=== PATIENT | male | born 1995 | race Caucasian/White ===

== ENCOUNTER 2019-07-03 20:56 | Inpatient (IN) ==
[2019-07-03 21:27] LABS: Bilirubin,Urine Small (Negative); Blood,Urine Negative (Negative); Clarity,Urine Cloudy (Clear); Color,Urine Dark Yellow (Yellow); Glucose,Urine (UA) Normal (Normal); Ketones,Urine Trace mg/dL (Negative); Leukocyte Esterase,Urine Small (Negative); Nitrite,Urine Negative (Negative); Protein,Urine Trace mg/dL (Neg-Trace); Specific Gravity,Urine > 1.030 (1.010-1.025); Urobilinogen,Urine Normal (Normal)
[2019-07-03 21:28] LABS: Bacteria,Urine Few per hpf (None-Few); Hyaline Casts,Urine Moderate per lpf (None-Few); RBC,Urine 0-3 per hpf (0-3); Squamous Epithelial Cell,Urine Many per lpf (None-Few); WBC,Urine 15-30 per hpf (0-3)
[2019-07-03 21:31] LABS: Basophils % 0.3 %; Eosinophils % 0.3 %; Immature Granulocytes % 0.3 % (0-4); Lymphocytes # 2.9 K/mcL (0.6-4.6); Lymphocytes % 25.4 %; Mean Corpuscular HGB Conc 32.7 g/dL (31.6-35.5); Mean Corpuscular Hemoglobin 26.7 pg (28.0-33.3); Mean Corpuscular Volume 81.7 fL (83.0-100.0); Mean Platelet Volume 11.4 fL (9.4-12.4); Monocytes # 0.7 K/mcL (0.0-1.3); Monocytes % 5.8 %; Neutrophils # 7.8 K/mcL (1.6-8.9); Platelet Count 279 K/mcL (140-400); Red Cell Distribution Width 14.2 % (11.5-14.5); Segmented Neutrophils % 67.9 %; White Blood Count 11.5 K/mcL (4.3-11.1)
[2019-07-03 21:36] LABS: Mucus,Urine Many per lpf (Few)
[2019-07-03 21:39] LABS: Amphetamine Screen,Urine Negative ng/mL (Cutoff=1000); Barbiturate Screen,Urine Negative ng/mL (Cutoff=200); Benzodiazepines Screen,Urine Negative ng/mL (Cutoff=200); Cannabinoid Screen,Urine Positive ng/mL (Cutoff = 50); Cocaine Screen,Urine Positive ng/mL (Cutoff= 300); Opiate Screen,Urine Negative ng/mL (Cutoff=300); Phencyclidine Screen,Urine Negative ng/mL (Cutoff=25)
[2019-07-03 21:49] LABS: Acetaminophen < 10 mcg/mL (10-20); BUN/Creatinine Ratio 16 (6-26); Blood Urea Nitrogen 13 mg/dL (6-20); Calcium 9.7 mg/dL (8.6-10.3); Carbon Dioxide 22 mEq/L (23-29); Chloride 106 mEq/L (98-107); Ethanol < 10 mg/dL (Less than 10); Glucose 129 mg/dL (70-105); Osmolality,Calculated 288 (280-300); Potassium 3.3 mEq/L (3.5-5.1); Salicylate < 2.5 mg/dL (15.0-30.0); Sodium 138 mEq/L (136-145); eGFR For African Americans > 60 (> 60); eGFR For Non-African Americans > 60 (> 60)
[2019-07-03] MEDS ORDERED: Haloperidol Lactate 5 MG/ML VIAL IM PRN (23:56)
[2019-07-03] MEDS ORDERED: MOM Conc 10 ML UD.LIQ PO PRN (23:56)
[2019-07-03] MEDS ORDERED: *HR* LORazepam 1 MG TABLET PO PRN (23:56)
[2019-07-03] MEDS ORDERED: *HR* LORazepam 2 MG/ML VIAL IM PRN (23:56)
[2019-07-03] MEDS ORDERED: Mag Hydrox/Al Hydrox/Simeth 30 ML UDC PO PRN (23:56)
[2019-07-03] MEDS ORDERED: haloperidoL 5 MG TABLET PO PRN (23:56)
[2019-07-03] MEDS ORDERED: hydrOXYzine pamoate 25 MG CAPSULE PO PRN (23:56)
[2019-07-03] MEDS ORDERED: traZODone 50 MG TABLET PO PRN (23:56)
[2019-07-03] MEDS ORDERED: Acetaminophen 325 MG TABLET PO PRN (23:56)
[2019-07-04] MEDS: lamoTRIgine 25 MG TABLET PO SCH ×2 (00:42→20:09)
[2019-07-04] MEDS ORDERED: Loratadine/Pseudophed (12 HR) 1 EACH TABLET PO PRN (09:36)
[2019-07-04] MEDS: Nicotine 2 MG GUM BC PRN ×3 (12:17→20:56)
[2019-07-05] MEDS: Nicotine 2 MG GUM BC PRN (08:31)
[2019-07-05 09:16] VITALS: BP 134/92
== END 2019-07-05 09:05 | disposition home or self-care (01) | DRG 753 ==
LOC: 1ANU 20:56 → EMEROOARM 20:56 → 1ANU 07-04 00:30
PROVIDERS: ADMIT Psychiatry & Neurology Psychiatry; ATTEND Psychiatry & Neurology Psychiatry

== ENCOUNTER 2021-04-13 10:18 | Inpatient (IN) ==
[2021-04-13] MEDS ORDERED: Isovue-370 500 ML BOTTLE IVP ONE (11:55)
[2021-04-13 12:26] LABS: Eosinophils % 0.4 %; Hematocrit 46.6 % (37.5-50.1); Hemoglobin 15.1 g/dL (12.9-16.9); Immature Granulocytes % 0.6 % (0-4); Lymphocytes % 15.3 %; Mean Corpuscular HGB Conc 32.4 g/dL (31.6-35.5); Mean Corpuscular Hemoglobin 25.9 pg (28.0-33.3); Mean Corpuscular Volume 79.8 fL (83.0-100.0); Mean Platelet Volume 10.6 fL (9.4-12.4); Monocytes % 10.3 %; Platelet Count 269 K/mcL (140-400); Red Blood Count 5.84 M/mcL (4.19-5.50)
[2021-04-13 12:27] LABS: Basophils # 0.1 K/mcL (0.0-0.2); Basophils % 0.4 %; Eosinophils # 0.1 K/mcL (0.0-0.6); Lymphocytes # 2.4 K/mcL (0.6-4.6); Monocytes # 1.7 K/mcL (0.0-1.3); Neutrophils # 11.6 K/mcL (1.6-8.9)
[2021-04-13 12:44] LABS: BUN/Creatinine Ratio 12 (6-26); Blood Urea Nitrogen 13 mg/dL (6-20); C-Reactive Protein 122 mg/L (Less than 10); Calcium 9.4 mg/dL (8.6-10.3); Carbon Dioxide 25 mEq/L (23-29); Chloride 106 mEq/L (98-107); Glucose 102 mg/dL (70-105); Osmolality,Calculated 278 (280-300); Potassium 3.2 mEq/L (3.5-5.1); Sodium 134 mEq/L (136-145); eGFR For African Americans > 60 (> 60); eGFR For Non-African Americans > 60 (> 60)
[2021-04-13] MEDS ORDERED: 0.9 % Sodium Chloride 1,000 ML IVC ONE (13:15)
[2021-04-13] MEDS ORDERED: Vancomycin 2,000 MG/520 ML IV.SOLN IVPB ONE (14:07)
[2021-04-13] MEDS ORDERED: Piperacillin/Tazobactam 3.375 GM in 0.9 % Sodium Chloride Mini Bag 100 ML IVPB ONE (14:07)
[2021-04-13] MEDS ORDERED: Acetaminophen 325 MG TABLET PO PRN (14:25)
[2021-04-13] MEDS ORDERED: *HR* OxyCODONE Immed Rel 5 MG TABLET PO PRN (14:25)
[2021-04-13] MEDS ORDERED: Ondansetron 4 MG/2 ML VIAL IVP PRN ×2 (14:25→19:59)
[2021-04-13] MEDS ORDERED: *HR* HYDROcodone/Acet 5/325 mg TABLET PO PRN (14:25)
[2021-04-13] MEDS ORDERED: Naloxone 0.4 MG/ML INJ IVP PRN ×2 (14:25→19:59)
[2021-04-13] MEDS ORDERED: Potassium Chloride Elixir 20 MEQ/15 ML UDC PO ONE (14:59)
[2021-04-13] MEDS: Ringers Solution, Lactated 1,000 ML IVC SCH (18:45)
[2021-04-13] MEDS: *HR* Heparin 5,000 UNIT/ML VIAL SQ SCH (18:46)
[2021-04-13] MEDS ORDERED: *HR* Succinylcholine 200 MG/10 ML VIAL IVP ONE (19:28)
[2021-04-13] MEDS ORDERED: *HR* Propofol 200 MG/20 ML VIAL IVP ONE (19:28)
[2021-04-13] MEDS ORDERED: Ondansetron 4 MG/2 ML VIAL ONE (19:28)
[2021-04-13] MEDS ORDERED: *HR* Midazolam HCl 2 MG/2 ML VIAL ONE (19:28)
[2021-04-13] MEDS ORDERED: *HR* FentaNYL (PF) 100 MCG/2 ML VIAL ONE ×3 (19:28→20:53)
[2021-04-13] MEDS ORDERED: Lidocaine -MPF 2% 5 ML VIAL ONE (19:28)
[2021-04-13] MEDS ORDERED: *HR* FentaNYL (PF) 100 MCG/2 ML VIAL IVP PRN (19:59)
[2021-04-13] MEDS ORDERED: Nitroglycerin 0.4 MG TAB.SUBL SL PRN (19:59)
[2021-04-13] MEDS ORDERED: Albuterol 2.5 MG/3 ML NEBULIZER IH PRN (19:59)
[2021-04-13] MEDS ORDERED: Ketamine HCL *QUVA* 50mg (1mL) SYRINGE ONE (20:12)
[2021-04-13] MEDS ORDERED: *HR* HYDROMORPHONE 2 MG/ML VIAL ONE (20:46)
[2021-04-13] MEDS: Vancomycin 2,000 MG/520 ML IV.SOLN IVPB SCH (21:20)
[2021-04-13] MEDS ORDERED: Vancomycin 2,000 MG/520 ML IV.SOLN IVPB SCH (22:00)
[2021-04-14] MEDS ORDERED: Acetaminophen IV 1,000 MG/100 ML BAG IVPB ONE (01:37)
[2021-04-14 03:18] LABS: Basophils # 0.1 K/mcL (0.0-0.2); Basophils % 0.3 %; Eosinophils # 0.1 K/mcL (0.0-0.6); Eosinophils % 0.7 %; Hematocrit 42.7 % (37.5-50.1); Hemoglobin 13.7 g/dL (12.9-16.9); Immature Granulocytes % 0.7 % (0-4); Lymphocytes % 12.2 %; Mean Corpuscular HGB Conc 32.1 g/dL (31.6-35.5); Mean Corpuscular Hemoglobin 25.8 pg (28.0-33.3); Mean Corpuscular Volume 80.6 fL (83.0-100.0); Mean Platelet Volume 11.2 fL (9.4-12.4); Monocytes # 1.5 K/mcL (0.0-1.3); Monocytes % 9.2 %; Neutrophils # 12.3 K/mcL (1.6-8.9); Platelet Count 265 K/mcL (140-400); Red Cell Distribution Width 14.6 % (11.5-14.5); Segmented Neutrophils % 76.9 %
[2021-04-14 03:32] LABS: BUN/Creatinine Ratio 13 (6-26); Blood Urea Nitrogen 11 mg/dL (6-20); Calcium 8.6 mg/dL (8.6-10.3); Carbon Dioxide 21 mEq/L (23-29); Chloride 104 mEq/L (98-107); Glucose 107 mg/dL (70-105); Magnesium 1.9 mg/dL (1.6-2.6); Osmolality,Calculated 276 (280-300); Potassium 3.6 mEq/L (3.5-5.1); Sodium 133 mEq/L (136-145); eGFR For African Americans > 60 (> 60); eGFR For Non-African Americans > 60 (> 60)
[2021-04-14] MEDS: Vancomycin 2,000 MG/520 ML IV.SOLN IVPB SCH (05:40)
[2021-04-14] MEDS: *HR* Heparin 5,000 UNIT/ML VIAL SQ SCH (06:19)
[2021-04-14] MEDS: Ringers Solution, Lactated 1,000 ML IVC SCH (06:27)
[2021-04-14] MEDS ORDERED: *HR* OxyCODONE Immed Rel 5 MG TABLET PO PRN (07:11)
[2021-04-14] MEDS ORDERED: *HR* HYDROcodone/Acet 5/325 mg TABLET PO PRN (07:11)
[2021-04-14] MEDS ORDERED: Acetaminophen 325 MG TABLET PO PRN (07:11)
[2021-04-14] MEDS ORDERED: Naloxone 0.4 MG/ML INJ IVP PRN (07:11)
[2021-04-14] MEDS ORDERED: Ringers Solution, Lactated 1,000 ML IVC SCH (07:11)
[2021-04-14] MEDS ORDERED: Ondansetron 4 MG/2 ML VIAL IVP PRN (07:11)
[2021-04-14] MEDS ORDERED: Piperacillin/Tazobactam 3.375 GM in 0.9 % Sodium Chloride Mini Bag 100 ML IVPB SCH ×2 (08:00)
[2021-04-14] MEDS ORDERED: Oxymetazoline Nasal Spray Bottle 30ML NS SCH (09:00)
[2021-04-14] MEDS ORDERED: predniSONE 20 MG TABLET PO SCH (09:00)
[2021-04-14 12:07] VITALS: TEMP 97.9
[2021-04-14] MEDS ORDERED: Vancomycin 2,000 MG/520 ML IV.SOLN IVPB SCH (14:00)
[2021-04-14 14:28] VITALS: BP 96/62; PULSE 85; O2SAT 96
[2021-04-14] MEDS ORDERED: Vancomycin 1,500 MG/265 ML IV.SOLN IVPB SCH (16:00)
[2021-04-14] MEDS ORDERED: *HR* Heparin 5,000 UNIT/ML VIAL SQ SCH (18:00)
== END 2021-04-14 17:01 | disposition home or self-care (01) | DRG 710 ==
LOC: 3ANU 10:18 → EMEROOARM 10:18 → SUATTDRO 14:49 → 3ANU 15:49
PROVIDERS: ADMIT Internal Medicine; ATTEND Internal Medicine